=== PATIENT | female | born 1995 | race Caucasian/White ===

== ENCOUNTER 2017-01-16 18:23 | Observation (INO) ==
--- NOTE | 2017-01-16 20:19 | Emergency Department Note ---
Disposition Clinical Impression: Sensation problem Back pain Qualifiers: Back pain location: low back pain Chronicity: acute Back pain laterality: bilateral Sciatica presence: without sciatica Qualified Code(s): M54.5 - Low back pain Disposition: Admitted As Inpatient Condition: Fair Time of Disposition: 01:19 General Adult HPI - General Chief complaint: ED Neuro Symptoms/Deficit Stated complaint: L leg numbness h/o transverse myelitis Time Seen by Provider: 01/16/17 19:02 Source: patient Mode of arrival: ambulatory Limitations: no limitations Nursing Notes Reviewed: Yes Vital Signs Reviewed: Yes - History of Present Illness HPI Narrative: Ms. Bui, a 21yo female, presents from home by POV for evaluation of left leg numbness and lower back pain. Lower back pain onset this AM while brushing her teeth. Midline L2,3,4. Described as constant, sharp, worse with walking. Left leg numbness described as left popliteal space extending inferiorly midline. No associated trauma. No IV drug use. No recent steroid use. No hx nephrolithiasis. No bowel or bladder changes. No fever, chills, nausea, vomiting, abdominal pain. No changes in appetite. Hx Transverse myelolitis dx in 2008 diagnosed at [facility]; unknown inciting factors. Managed at that time with steroids. She regained movement with chronic decreased sensation to light touch. Mild residual BL weakness; no walking aids required. No relapses since 2008. 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 Smokes 1ppd. Occasional EtOH. Currently on menses. No daily medications. Pain Scale: 9 - Related Data Home Medications Medication Instructions Recorded Confirmed No Known Home Drugs 01/16/17 01/16/17 Allergies Allergy/AdvReac Type Severity Reaction Status Date / Time Sulfa (Sulfonamide Allergy Rash Verified 12/09/16 15:27 Antibiotics) vancomycin Allergy Swelling Verified 12/09/16 15:27 of Lip/Tongue/Throat All systems ED: reviewed and negative except as stated. Past Medical History - Past Medical History Medical history: Reports: other Psychiatric history: Reports: no psych history SHRIMP CLEANER history: Reports: no SHRIMP CLEANER history - Social History Smoking Status: Current every day smoker Smokeless Tobacco Status: No Alcohol use: Reports: rarely Drug use: Reports: none Physical Exam Vital Signs Reviewed General: Patient is alert, oriented, and in no acute distress. HEENT: No facial asymmetry. Head is normocephalic and atraumatic. PERRLA, EOMI. , because moist. Trachea midline. Cardiovascular: Heart regular rate and rhythm without clicks, rubs, gallops, or murmurs. No JVD. PMI nondisplaced. No pedal edema. Bilateral radial and posterior tibial pulses 2/4 equal. Respiratory: Symmetric chest rise with good respiratory effort. Bilateral breath sounds are clear without wheezing, crackles, or rhonchi. Abdomen: Bowel sounds present normoactive x-4 quadrants. Abdomen is soft, nondistended, and diffusely tender. Musculoskeletal: Muscle strength 3/5 and symmetric bilaterally in lower extremities; baseline per patient. DTRs 3/4 and symmetric bilaterally in lower extremities. Neuro: Cranial nerves II through XII without deficit. Sensation to light touch reduced left leg specifically in a sleeve like distribution/circumferentially from the infrapatellar area to the bilateral malleoli; sensation of bilateral lower extremities otherwise unchanged per patient's baseline. Psych: Patient's affect is appropriate for situation. - General Limitations: no limitations General appearance: alert Course Course Narrative: Patient presents from home by POV for evaluation of back pain gradual in onset for the past 2 days as well as a change in sensation of her left leg. Prior history is concerning for 2008 diagnosis of transverse myelolitis diagnosed at [facility]. No follow-up or flares since. Chronic sequale of BL LE weakness and reduced sensation. She is able to ambulate without assistance at baseline. Regarding her back pain, it is worse with movement. No trauma, unusual twisting or lifting, no changes in bowel or bladder. Regarding her change in sensation...this is circumferential on her left leg from the knee to ankle, not following a dermatomal pattern. No symptoms proximal to her left knee. Spoke with on-call neurology, Dr. Quintanilla, and discussed patient's history, physical exam, and clinical picture. Her symptoms do not clearly fit anatomic distribution thus there is concern for MS. He recommends admission with MR head , C-spine, T-spine, L-spine as well as steroids at this time. His approach is erroring on the side of aggression given the patient's history and non-anatomic distribution of symptoms with the addition of her lack of follow-up and lack of recent imaging. Spoke with the admitting hospitalist who agrees to accept the patient. Vital Signs Temperature 98.3 F 09/05/17 18:52 Pulse Rate 76 01/16/17 18:52 Respiratory Rate 18 01/16/17 18:52 Blood Pressure 108/74 01/16/17 18:52 O2 Sat by Pulse Oximetry 99 01/16/17 18:52 Temperature 98.3 F 01/17/17 11:12 Pulse Rate 61 01/17/17 11:12 Respiratory Rate 15 01/17/17 11:12 Blood Pressure 95/57 01/17/17 11:12 O2 Sat by Pulse Oximetry 98 01/17/17 11:12 Oxygen Delivery Oxygen Delivery Room Air Medical Decision Making - Medical Records Medical records reviewed: Yes I reviewed the patient's medical records. - Lab Data Lab results reviewed: Yes I reviewed the patient's lab results. Result diagrams: 01/17/17 06:16 01/16/17 22:10 Lab Results 01/16/17 01/16/17 01/16/17 Range/Units 22:10 22:10 22:10 WBC 7.6 (4.3-11.1) K/mcL RBC 3.85 (3.82-4.97) M/mcL Hgb 10.9 L (11.5-15.4) g/dL Hct 33.6 L (35.3-44.9) % MCV 87.3 (83.0-100.0) fL MCH 28.3 (28.0-33.3) pg MCHC 32.4 (31.6-35.5) g/dL RDW 13.6 (11.5-14.5) % Plt Count 200 (140-400) K/mcL MPV 10.8 (9.4-12.4) fL Immature Gran % 0.4 (0-4) % Seg Neutrophils % 62.7 % Lymphocytes % 26.8 % Monocytes % 6.3 % Eosinophils % 3.3 % Basophils % 0.5 % Neutrophils # 4.8 (1.6-8.9) K/mcL Lymphocytes # 2.1 (0.6-4.6) K/mcL Monocytes # 0.5 (0.0-1.3) K/mcL Eosinophils # 0.3 (0.0-0.6) K/mcL Basophils # 0.0 (0.0-0.2) K/mcL ESR 25 H (0-15) mm/hr Sodium 141 (136-145) mEq/L Potassium 3.2 L (3.5-4.5) mEq/L Chloride 110 H (98-109) mEq/L Carbon Dioxide 22 (19-29) mEq/L BUN 9 (7-20) mg/dL Creatinine 0.65 (0.57-1.11) mg/dL Est GFR ( Amer) > 60 (> 60) Est GFR (Non-Af Amer) > 60 (> 60) BUN/Creatinine Ratio 14 (6-26) Glucose 88 (70-99) mg/dL Calculated Osmolality 290 (280-300) Calcium 8.8 (8.6-10.8) mg/dL - Radiology Data Radiology results reviewed: Yes I reviewed the patient's radiology results. Retroperitoneum Ultrasound 01/17/17 08:00 IMPRESSION: Unremarkable ultrasound of the kidneys. No hydronephrosis. Incidental splenomegaly which is of undetermined clinical significance. Clinical correlation recommended. D/ / Ronel Gaspar MD / Ronel Gaspar MD Interpreting Provider: Ronel Gaspar MD Attestation Statement - Attestation Attestation: I personally interviewed and examined this patient and my medical decision- making was reviewed with the Resident Physician, Dr. Crooks. I agree with the documented findings, disposition and treatment plan as described except to the extent set forth below. Pt is a 21 yo wf who presents ambulatory to the ED today with c/o grad worsening lumbosacral back pain and LLE paresthesias. Pt with hx transverse myelitis in 2008, which resulted in temporary paralysis of B/L LE's with paresthesias and sensory loss. Pt with recovery of paralysis but gait disturbance with ambulation since that time which is chronic. Pt here with new paresthesias of LLE without motor weakness. No other asscod sxs, no hx falls/ trauma. I agree with pt's PE as documented. Labs wnl. Neuro findings do not seem to relate back pain to LLE paresthesias. Unclear clinical picture. D/W Neuro on-call, who recommended admission with imaging to r/o MS, and initiated steroids IV in eD. D/W hospitalist who accepted pt for admission, and neuro consulted from ED.
[2017-01-16] MEDS ORDERED: methylPREDNISolone 125 MG/2 ML VIAL IVP ONE ×2 (21:54→22:22)
[2017-01-16 22:30] LABS: Basophils % 0.5 %; Eosinophils # 0.3 K/mcL (0.0-0.6); Eosinophils % 3.3 %; Hematocrit 33.6 % (35.3-44.9); Hemoglobin 10.9 g/dL (11.5-15.4); Immature Granulocytes % 0.4 % (0-4); Lymphocytes # 2.1 K/mcL (0.6-4.6); Lymphocytes % 26.8 %; Mean Corpuscular HGB Conc 32.4 g/dL (31.6-35.5); Mean Corpuscular Hemoglobin 28.3 pg (28.0-33.3); Mean Corpuscular Volume 87.3 fL (83.0-100.0); Mean Platelet Volume 10.8 fL (9.4-12.4); Monocytes # 0.5 K/mcL (0.0-1.3); Monocytes % 6.3 %; Neutrophils # 4.8 K/mcL (1.6-8.9); Platelet Count 200 K/mcL (140-400); Red Blood Count 3.85 M/mcL (3.82-4.97); Red Cell Distribution Width 13.6 % (11.5-14.5); Segmented Neutrophils % 62.7 %
[2017-01-16 22:33] LABS: BUN/Creatinine Ratio 14 (6-26); Blood Urea Nitrogen 9 mg/dL (7-20); Calcium 8.8 mg/dL (8.6-10.8); Carbon Dioxide 22 mEq/L (19-29); Chloride 110 mEq/L (98-109); Glucose 88 mg/dL (70-99); Osmolality,Calculated 290 (280-300); Potassium 3.2 mEq/L (3.5-4.5); Sodium 141 mEq/L (136-145); eGFR For African Americans > 60 (> 60); eGFR For Non-African Americans > 60 (> 60)
[2017-01-16 22:41] LABS: Bilirubin,Urine Negative (Negative); Blood,Urine Trace (Negative); Clarity,Urine Cloudy (Clear); Color,Urine Yellow (Yellow); Glucose,Urine (UA) Normal (Normal); Ketones,Urine Trace mg/dL (Negative); Leukocyte Esterase,Urine Moderate (Negative); Nitrite,Urine Positive (Negative); Protein,Urine Trace mg/dL (Neg-Trace); Specific Gravity,Urine 1.026 (1.010-1.025); Urobilinogen,Urine Normal (Normal)
[2017-01-16 22:43] LABS: Bacteria,Urine Many per hpf (None-Few); Squamous Epithelial Cell,Urine Many per lpf (None-Few); WBC,Urine TNTC per hpf (0-3)
[2017-01-16 22:59] LABS: Mucus,Urine Few (Few)
[2017-01-17] MEDS ORDERED: Acetaminophen 325 MG TABLET PO PRN (00:27)
[2017-01-17] MEDS ORDERED: Ondansetron 4 MG/2 ML VIAL IVP PRN (00:27)
[2017-01-17] MEDS ORDERED: Naloxone 0.4 MG/ML INJ IVP PRN (00:27)
[2017-01-17] MEDS ORDERED: MOM Conc 10 ML UD.LIQ PO PRN (00:27)
[2017-01-17] MEDS: Famotidine 20 MG TABLET PO SCH ×2 (01:14→09:08)
[2017-01-17] MEDS: 0.9 % Sodium Chloride 1,000 ML IVC SCH ×2 (01:15→09:08)
--- NOTE | 2017-01-17 02:29 | Internal Med History&Physical ---
Date of Encounter: 01/17/17 Time of Encounter: 02:25 Assessment and Plan (1) UTI (urinary tract infection) Current visit: Yes Status: Acute Her UA is positive and with left flank pain I suspect UTI. She is already having periods therefore it is hard to determine if she is bleeding. I will order an ultrasound of the kidneys to rule out hydronephrosis or non-radiopaque stones but if there is enough evidence present a CT abdomen and pelvis with contrast can be attempted in the morning. In the meantime I will start her on IV fluid and IV Rocephin with IV pain medication. Qualifiers: Urinary tract infection type: site unspecified Hematuria presence: without hematuria Qualified Code(s): N39.0 - Urinary tract infection, site not specified (2) Paresthesia of lower extremity Current visit: Yes Status: Acute Chronic finding which aggravated today and has already resolved. I am not sure if for her left flank pain might have radiated in the direction of groin versus if she had worsening of her chronic paresthesia. Will observe at this point while neurology consult is pending (3) Back pain Current visit: Yes Status: Acute Neurology is consulted and they have already ordered MRI of brain in [place] [facility] which will be done in the morning. Neurology has a concern if she has multiple sclerosis due to distribution of her symptoms. Patient has been given 1 g Solu-Medrol in the ER and I have not repeated it. Qualifiers: Back pain location: low back pain Chronicity: acute Back pain laterality : bilateral Sciatica presence: without sciatica Qualified Code(s): M54.5 - Low back pain (4) Transverse myelitis Current visit: Yes Status: Acute History of transverse myelitis in 2008 and currently neurological examination is consistent with her chronic residual weakness. No new change. Internal Medicine - H&P: HPI Chief complaint: Back pain Admitted From: Home Plans for Post Hospital Care: Home History of present illness: Ms. Bui is a 21 year old female past medical history significant for transverse myelitis in 2008 with residual numbness and mild weakness in bilateral lower extremity though she can ambulate without any support. For last 2 days she has been experiencing lower back and left flank pain which she described advanced onto her left lower extremity. To complicate her clinical presentation further she has complained about bilateral lower extremity numbness which is more than usual mainly in her left leg which descends from top towards her foot. However this symptom has already resolved. She thinks she can walk okay but is still complaining of lower back pain. Before consulting us ER physician has already spoken to Dr. Quintanilla, neurologist. They were concerned about the multiple sclerosis? And patient has been given 1 g of IV Solu-Medrol and MRI of the brain and full spine has been ordered by the resident. Patient denies any dysuria urgency frequency or hematuria hematochezia hematemesis melena or abdominal pain fever or bowel or bladder dysfunction or any recent trauma or fall. Past Med Surg Social Fam HX - Past Medical History Medical history: other Psychiatric history: no psych history - Social History Smoking Status: Current every day smoker Packs per day: 1 Smokeless Tobacco Status: No Alcohol use: rarely Drug use: none - Family History Mother Hx Family Cancer: Yes (Lung) Internal Medicine - H&P: Meds No Known Home Drugs 01/16/17 [History] 3 Allergy/AdvReac Type Severity Reaction Status Date / Time Sulfa (Sulfonamide Allergy Rash Verified 12/09/16 15:27 Antibiotics) vancomycin Allergy Swelling Verified 12/09/16 15:27 of Lip/Tongue/Throat All Systems PM: A 10-system review of systems was performed and is negative for pertinent findings except as documented above in the HPI. - Constitutional Constitutional: no chills, no fever(s), no night sweats - EENT Eyes: no change in vision, no discharge, no pain, no photophobia Ears: no ear discharge, no ear pain, no tinnitus Nose, mouth and throat: no dysphagia, no nasal discharge, no neck pain, no sore throat - Cardiovascular Cardiovascular ROS IM: no chest pain, no diaphoresis, no dyspnea, no lightheadedness, no palpitations, no syncope - Respiratory Respiratory: no cough, no dyspnea, no wheezing, no excessive phlegm production - Gastrointestinal Gastrointestinal: no abdominal pain, no diarrhea, no hematemesis, no hematochezia, no melena, no nausea, no vomiting - Genitourinary Genitourinary: no change in urinary stream, no dysuria, no flank pain, no hematuria - Musculoskeletal Musculoskeletal ROS IM: no numbness, no tingling - Integumentary Integumentary IM: no rash, no unusual bruising - Neurological Neurological ROS: no confusion, no convulsions, no focal weakness, no numbness, no tingling, no tremor(s) - Hematologic/Lymphatic Hematologic/Lymphatic: no easy bruising - Constitutional Vitals: Temp Pulse Resp BP Pulse Ox 97.7 F 82 18 92/59 99 01/17/17 00:42 01/17/17 00:42 01/17/17 00:42 01/17/17 00:42 01/17/17 00:42 General appearance: Present: A&O X 3, no acute distress, answers questions appropriately Exam: Patient's lower back examined and there is tenderness in the left flank actually was CVA tenderness positive - Head Head exam: Present: atraumatic, normocephalic - Eye Eye exam: Present: PERRL, conjuntiva pink, sclera anicteric Pupils: Present: PERRL - Neck Neck exam general surgery: Present: supple, trachea midline. Absent: lymphadenopathy - Respiratory Respiratory exam: Present: CTAB. Absent: accessory muscle use, rales, rhonchi, wheezes - Cardiovascular Cardiovascular exam: Present: RRR, +S1, +S2. Absent: diastolic murmur, gallop, rubs, systolic murmur - GI/Abdominal GI/Abdominal exam: Present: normal bowel sounds, soft, no peritoneal signs. Absent: distended, tenderness - Extremities Exam Extremities exam: Present: warm, radial pulses palpable and symmetrical. Absent : calf tenderness, cyanotic, pedal edema - Neurological Exam Neurological exam: Present: CN II-XII intact, oriented X3. Absent: pronater drift, facial droop, speech deficit Additional comments: Patient walks with left foot drop which she told me is an old finding. Beside that I did not notice any pronator drift in upper or lower extremities and as expected she has hyperreflexic knee jerk and weakness of tibialis anterior on the left side. - Skin Skin exam: Present: dry, intact Internal Med - H&P Results - Labs CBC & Chem 7: 01/16/17 22:10 01/16/17 22:10 Labs: Urine 01/16/17 Range/Units 22:30 Urine Color Yellow (Yellow) Urine Clarity Cloudy A (Clear) Urine pH 6.0 (5.0-8.0) pH Units Ur Specific Robinson 1.026 H (1.010-1.025) Urine Protein Trace (Neg-Trace) mg/dL Urine Glucose (UA) Normal (Normal) mg/dL
[2017-01-17] MEDS: *HR* HYDROcodone/Acet 5/325 mg TABLET PO PRN ×2 (05:55→14:08)
[2017-01-17] MEDS ORDERED: *HR* Enoxaparin 40 MG/0.4 ML SYRINGE SQ SCH (06:00)
[2017-01-17 06:52] LABS: Basophils % 0.3 %; Eosinophils % 0.3 %; Hematocrit 33.2 % (35.3-44.9); Hemoglobin 10.9 g/dL (11.5-15.4); Immature Granulocytes % 0.3 % (0-4); Immature Platelets 4.7 % (1.1-6.1); Lymphocytes # 0.8 K/mcL (0.6-4.6); Lymphocytes % 13.4 %; Mean Corpuscular HGB Conc 32.8 g/dL (31.6-35.5); Mean Corpuscular Hemoglobin 28.5 pg (28.0-33.3); Mean Corpuscular Volume 86.7 fL (83.0-100.0); Mean Platelet Volume 11.3 fL (9.4-12.4); Monocytes # 0.1 K/mcL (0.0-1.3); Monocytes % 1.2 %; Neutrophils # 5.1 K/mcL (1.6-8.9); Platelet Count 197 K/mcL (140-400); Red Blood Count 3.83 M/mcL (3.82-4.97); Red Cell Distribution Width 13.7 % (11.5-14.5); Segmented Neutrophils % 84.5 %
[2017-01-17 14:41] VITALS: BP 116/73
--- NOTE | 2017-01-17 17:40 | Discharge Summary ---
Date of Encounter: 01/17/17 Time of Encounter: 17:33 - Discharge Diagnosis (1) UTI (urinary tract infection) Priority: Primary Status: Acute Qualifiers: Urinary tract infection type: site unspecified Hematuria presence: without hematuria Qualified Code(s): N39.0 - Urinary tract infection, site not specified (2) Paresthesia of lower extremity Priority: Primary Status: Acute (3) Transverse myelitis Priority: Secondary Status: Acute - Discharge Medications Prescriptions: Cephalexin [Keflex] 500 mg PO TID 5 Days predniSONE [PredniSONE] 40 mg PO DAILY 5 Days Home Medications: Cephalexin [Keflex] 500 mg PO TID 5 Days 01/17/17 [Rx] predniSONE [PredniSONE] 40 mg PO DAILY 5 Days 01/17/17 [Rx] Allergies/Adverse Reactions: 3 Allergy/AdvReac Type Severity Reaction Status Date / Time Sulfa (Sulfonamide Allergy Rash Verified 12/09/16 15:27 Antibiotics) vancomycin Allergy Swelling Verified 12/09/16 15:27 of Lip/Tongue/Throat Procedures/tests Complete & Pending: Procedures Performed prior 72 hours Category Date Time Status retroperitoneal ultrasound - limited [US Exams 01/17/17 08:00 Completed retroperitoneal limited] [US] Stat Date of admission: 01/16/17 22:13 Primary care physician: PCP NONE Consults: 01/17/17 09:48 Consult to Neurology [CONS] Routine Consulting Provider: Neurology [facility] Reason for Consult: Lower back pain Call Completed: Yes - Patient Status Disposition: Home, Self-Care Condition: Good Overall status at discharge: patient is back to baseline - Discharge Instructions Follow Up With: NONE,PCP [Primary Care Provider] - Mikey Quintanilla DO [Partnered Physician] - Additional Instructions: Please follow up with Neurologist in 1-2 weeks Also please come back to ER right away if your develop any vision abnormalities , numbness and weakness in any of your extremities - Diet and Activity Activity: increase activity as tolerated Diet: advance to your usual diet Hospital course: Ms. Bui is a 21 year old female past medical history significant for transverse myelitis in 2008 with residual numbness and mild weakness in bilateral lower extremity though she can ambulate without any support. For last 2 days she has been experiencing lower back and left flank pain which she described advanced onto her left lower extremity. To complicate her clinical presentation further she has complained about bilateral lower extremity numbness which is more than usual mainly in her left leg which descends from top towards her foot. However this symptom has already resolved. She thinks she can walk okay but is still complaining of lower back pain. Before consulting us ER physician has already spoken to Dr. Quintanilla, neurologist. They were concerned about the multiple sclerosis? And patient has been given 1 g of IV Solu-Medrol and MRI of the brain and full spine has been ordered by the resident. Patient denies any dysuria urgency frequency or hematuria hematochezia hematemesis melena or abdominal pain fever or bowel or bladder dysfunction or any recent trauma or fall. Pt was admitted in the hospital and started her on empirical abx with Rocephin. She already received 1gm Solumedrol in the ER. She was scheduled for MRI of spine and brain to rule out any multiple sclerosis. Apparently she had a roni stud / piercing on her face which she does not wanted to remove. So we were unable to do MRI. However pt stated her symptoms resolved completely now, she feels like she is back at her baseline. She was seen by Neurologist, who recommend to f/u with him as an out pt 2 weeks. Mean while she develops any symptoms of parasthesia / numbness, recommend to come back to ER right away. Also encouraged to get removed the facial piercing for possible MRI as an out pt at least for basic work up. Since she seems to be non compliance with medication and do not have any clear imaging findings for MS diagnosis, I and Dr. Quintanilla from neurology decided to give her a short course of PO steroids Prednisone 40mg daily for 5 more days. For her UTI, she had fluroquinolone resistant E. Coli in November, so sending her home on Keflex today - Time Spent with Patient Total time spent providing and/or coordinating discharge services: - Constitutional Vitals: Temp Pulse Resp BP Pulse Ox 97.5 F L 63 15 116/73 98 01/17/17 14:40 01/17/17 14:40 01/17/17 14:40 01/17/17 14:40 01/17/17 14:40 General appearance: Present: A&O X 3, no acute distress, answers questions appropriately - Head Head exam: Present: atraumatic, normal inspection - Respiratory Respiratory exam: Present: CTAB. Absent: respiratory distress, rhonchi, wheezes - Cardiovascular Cardiovascular exam: Present: RRR, +S1, +S2. Absent: diastolic murmur, gallop, rubs, systolic murmur - GI/Abdominal GI/Abdominal exam: Present: normal bowel sounds, soft. Absent: rebound, rigid, tenderness - Extremities Exam Extremities exam: Absent: calf tenderness, pedal edema, tenderness - Neurological Exam Neurological exam: Present: alert, CN II-XII intact, normal gait, oriented X3, reflexes normal, no focal deficits, strengths equal and symetr throughout. Absent: motor sensory deficit, facial droop, speech deficit - Psychiatric Psychiatric exam: Present: normal affect, normal mood
--- NOTE | 2017-01-17 17:46 | Neurology - Consult Note ---
Date of Encounter: 01/17/17 Time of Encounter: 17:42 Assessment and Plan (1) Paresthesia of lower extremity Current Visit: Yes Status: Acute At this juncture I cannot give a specific etiology to explain the transient paresthesias of the left lower extremity here. Perhaps the fact that she has previously had transverse myelitis in the left side is worse, maybe the excessive walking and placed increased metabolic commands on admission of the spinal cord and resulted in momentary decompensation. She states that she is asymptomatic and now back to her normal baseline which does include residual spasticity of the lower extremities and paresthesias in both legs from the knees down. I did explain to her the importance of trying to identify specifically what might have caused this, which includes an MRI scan of the brain, cervical spine, and thoracic spine to rule out demyelinating disease. Also of the lumbar spine to rule out any peripheral nerve lesion. However she declines because of a piercing interface that would have to be surgically removed. I would still recommend sending her home on a tapering dose of corticosteroids, along with antibiotics for UTI. I did also test. This syndrome returns or worsens that she should go back to the ED immediately for further assessment. I would also like to follow up in my office in another week or 2. History of Present Illness HPI: Ms. 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 She apparently contracted transverse myelitis back in 2008. As far she understands the etiology of the transverse myelitis was unknown. However after a protracted recovery she is now able to walk however she does have spasticity and weakness of both lower extremities. She also has paresthesias from the knees down in both legs symmetrically. She maintains bladder and bowel continence. She states that Sunday she was at an outdoor festival and did an extensive amount of walking. She experienced paresthesias of the left leg from the knee down which is worse than she generally experiences. She denied any additional weakness of the left leg. She has however experienced some left-sided back pain as well. Urinalysis is supportive of an acute urinary tract infection. However given her prior history recommended that she be admitted for additional testing, namely MRI scans of the brain cervical and thoracic spine to rule out evidence of other white matter lesions. She unfortunately is not able to have MRIs because she has a medical condition interface that she declined to have removed. Otherwise she states that she is completely back to her normal baseline. Past Med Surg Social Fam HX - Past Medical History Medical history: other Psychiatric history: no psych history - Social History Smoking Status: Current every day smoker Packs per day: 1 Smokeless Tobacco Status: No Alcohol use: rarely Drug use: none - Family History Mother Hx Family Cancer: Yes (Lung) Medications and Allergies Cephalexin [Keflex] 500 mg PO TID 5 Days 01/17/17 [Rx] predniSONE [PredniSONE] 40 mg PO DAILY 5 Days 01/17/17 [Rx] 3 Allergy/AdvReac Type Severity Reaction Status Date / Time Sulfa (Sulfonamide Allergy Rash Verified 12/09/16 15:27 Antibiotics) vancomycin Allergy Swelling Verified 12/09/16 15:27 of Lip/Tongue/Throat All Systems: A 10-system review of systems was performed and is negative for pertinent findings except as documented above in the HPI. Review of Systems: She does have residual weakness and spasticity of both lower extremities, otherwise review of systems is consistent with a history of present illness and otherwise negative. Physical Examination - Vital Signs Vital Signs: Initial Vital Signs Temp Pulse Resp BP Pulse Ox 98.3 F 76 18 108/74 99 01/16/17 18:52 01/16/17 18:52 01/16/17 18:52 01/16/17 18:52 01/16/17 18:52 - Neurologic Detailed motor examination: other (She has normal strength bulk and tone of both upper extremities. She has spastic tone of both lower extremities worse on the left. The left foot is inverted.) Detailed sensory examination: other (Motor symmetric hypoesthesia of both lower extremities from the knees down.) Posture: other (She does have spasticity of both lower extremities.) Reflex and gait examination: clonus (Clonus is present in the left foot. Otherwise she has normal reflexes of both upper extremities, the right patellar reflexes 3/4, the left patellar reflexe is cloniform.) Mental Status Examination: awake, alert, oriented to person, oriented to place, oriented to time, follows commands appropriately, answers questions appropriately, no agnosia, no aphasia, no aproxia Cranial nerve examination: PERRL, EOMI, visual gonzales intact, corneal reflexes brisk symmetrically, sensory to face intact, mastication intact, no facial asymmetry is present, no dysarthria, hearing is intact symmetrically, soft palate elevates bilaterally upon phonation, gag reflex intact, flexes SCM and trapezius muscles symmetrically with full power, tongue protrudes midline, no atrophy or facial fasiculations present Results - Laboratory Findings CBC and BMP: 01/17/17 06:16 01/16/17 22:10 Abnormal lab findings: Abnormal lab results Hgb 10.9 g/dL (11.5-15.4) L 01/17/17 06:16 Hct 33.2 % (35.3-44.9) L 01/17/17 06:16 ESR 25 mm/hr (0-15) H 01/16/17 22:10 Potassium 3.2 mEq/L (3.5-4.5) L 01/16/17 22:10 Chloride 110 mEq/L (98-109) H 01/16/17 22:10 Urine Clarity Cloudy (Clear) A 01/16/17 22:30 Ur Specific [place] 1.026 (1.010-1.025) H 01/16/17 22:30 Urine Ketones Trace mg/dL (Negative) H 01/16/17 22:30 Urine Blood Trace (Negative) H 01/16/17 22:30 Urine Nitrite Positive (Negative) A 01/16/17 22:30 Ur Leukocyte Esterase Moderate (Negative) H 01/16/17 22:30 Urine Microscopic RBC 5-15 per hpf (0-3) H 01/16/17 22:30 Urine Microscopic WBC TNTC per hpf (0-3) H 01/16/17 22:30 Ur Squamous Epith Cells Many per lpf (None-Few) H 01/16/17 22:30 Urine Bacteria Many per hpf (None-Few) H 01/16/17 22:30 Consult Discharge Plan - Plan Instructions: Cephalexin (By mouth), Prednisone (By mouth), Urinary Tract Infection in Women (DC) Additional Instructions: Please follow up with Neurologist in 1-2 weeks Also please come back to ER right away if your develop any vision abnormalities , numbness and weakness in any of your extremities Referrals: Mikey Quintanilla DO [Partnered Physician] - NONE,PCP [Primary Care Provider] - Prescriptions: Cephalexin [Keflex] 500 mg PO TID 5 Days predniSONE [PredniSONE] 40 mg PO DAILY 5 Days
== END 2017-01-17 18:21 | disposition home or self-care (01) ==
LOC: EMEROO 18:23 → 3ANU 18:23
PROVIDERS: ADMIT Internal Medicine; ATTEND Family Medicine